=== PATIENT | male | born 1955 ===

== ENCOUNTER 2020-06-11 10:33 | Outpatient (CLI) | payer OTHER | END 2020-06-11 18:00 | disposition home or self-care (01) | LOC: LAB 10:33 | PROVIDERS: ATTEND Internal Medicine Cardiovascular Disease | DX: I10 Essential (primary) hypertension (principal); E11.9 Type 2 diabetes mellitus without complications; E03.8 Other specified hypothyroidism; E78.2 Mixed hyperlipidemia; E55.9 Vitamin D deficiency, unspecified; Z12.11 Encounter for screening for malignant neoplasm of colon; N40.0 Benign prostatic hyperplasia without lower urinary tract symptoms ==

== ENCOUNTER 2020-06-12 14:23 | Outpatient (CLI) | payer OTHER | END 2020-06-12 14:27 | disposition home or self-care (01) | LOC: LAB 14:23 | PROVIDERS: ATTEND Internal Medicine Cardiovascular Disease | DX: I10 Essential (primary) hypertension (principal); E11.9 Type 2 diabetes mellitus without complications; E03.8 Other specified hypothyroidism; E55.9 Vitamin D deficiency, unspecified; Z12.11 Encounter for screening for malignant neoplasm of colon; N40.0 Benign prostatic hyperplasia without lower urinary tract symptoms; E78.2 Mixed hyperlipidemia ==

== ENCOUNTER 2020-07-09 15:05 | Outpatient (CLI) | payer OTHER | END 2020-07-09 15:06 | disposition home or self-care (01) | LOC: NUCLEAR 15:05 | PROVIDERS: ATTEND Internal Medicine Cardiovascular Disease | DX: M81.0 Age-related osteoporosis without current pathological fracture (principal) ==

== ENCOUNTER → 2020-11-16 10:16 | Outpatient (CLI) | payer OTHER | END | disposition home or self-care (01) | LOC: LAB 10:16 | PROVIDERS: ATTEND Internal Medicine Cardiovascular Disease | DX: I10 Essential (primary) hypertension (principal); E11.9 Type 2 diabetes mellitus without complications; E03.8 Other specified hypothyroidism; E78.2 Mixed hyperlipidemia ==

== ENCOUNTER 2020-12-17 10:01 | Outpatient (CLI) | payer OTHER | END 2020-12-17 10:05 | disposition home or self-care (01) | LOC: NUCLEAR 10:01 | PROVIDERS: ATTEND Internal Medicine Cardiovascular Disease | DX: I73.9 Peripheral vascular disease, unspecified (principal) ==

== ENCOUNTER 2020-12-18 09:01 | Outpatient (CLI) | payer OTHER | END 2020-12-18 09:17 | disposition home or self-care (01) | LOC: NUCLEAR 09:01 | PROVIDERS: ATTEND Internal Medicine Cardiovascular Disease | DX: I87.2 Venous insufficiency (chronic) (peripheral) (principal) ==

== ENCOUNTER 2021-03-31 11:05 | Outpatient (CLI) | payer OTHER | END 2021-03-31 11:06 | disposition home or self-care (01) | LOC: LAB 11:05 | PROVIDERS: ATTEND Internal Medicine Cardiovascular Disease | DX: I10 Essential (primary) hypertension (principal); E11.9 Type 2 diabetes mellitus without complications; E03.8 Other specified hypothyroidism; E78.2 Mixed hyperlipidemia ==

== ENCOUNTER 2021-07-28 08:00 | Outpatient (CLI) | payer OTHER | END 2021-07-28 08:30 | disposition home or self-care (01) | LOC: PPH VACUNA 08:00 | PROVIDERS: ATTEND Emergency Medicine Pediatric Emergency Medicine | DX: Z23 Encounter for immunization (principal) ==

== ENCOUNTER 2021-08-26 11:02 | Outpatient (CLI) | payer OTHER | END 2021-08-26 11:15 | disposition home or self-care (01) | LOC: LAB 11:02 | PROVIDERS: ATTEND Internal Medicine Cardiovascular Disease | DX: Z12.11 Encounter for screening for malignant neoplasm of colon (principal); I10 Essential (primary) hypertension; E11.9 Type 2 diabetes mellitus without complications; E03.9 Hypothyroidism, unspecified; E78.2 Mixed hyperlipidemia; N40.0 Benign prostatic hyperplasia without lower urinary tract symptoms; E55.9 Vitamin D deficiency, unspecified ==

== ENCOUNTER 2021-08-30 11:41 | Outpatient (CLI) | payer OTHER | END 2021-08-30 11:42 | disposition home or self-care (01) | LOC: LAB 11:41 | PROVIDERS: ATTEND Internal Medicine Cardiovascular Disease | DX: E03.9 Hypothyroidism, unspecified (principal); I10 Essential (primary) hypertension; E11.9 Type 2 diabetes mellitus without complications; E78.2 Mixed hyperlipidemia; Z12.11 Encounter for screening for malignant neoplasm of colon; N40.0 Benign prostatic hyperplasia without lower urinary tract symptoms; E55.9 Vitamin D deficiency, unspecified ==

== ENCOUNTER → 2021-12-27 12:24 | Outpatient (CLI) | payer OTHER | END | disposition home or self-care (01) | LOC: LAB 12:24 | PROVIDERS: ATTEND Internal Medicine Cardiovascular Disease | DX: I10 Essential (primary) hypertension (principal); E03.9 Hypothyroidism, unspecified; E78.2 Mixed hyperlipidemia; E11.9 Type 2 diabetes mellitus without complications ==

== ENCOUNTER 2022-01-05 09:04 | Outpatient (CLI) | payer OTHER | END 2022-01-05 09:09 | disposition home or self-care (01) | LOC: PPH VACUNA 09:04 | PROVIDERS: ATTEND Emergency Medicine Pediatric Emergency Medicine | DX: Z23 Encounter for immunization (principal) ==

== ENCOUNTER → 2022-05-23 | Outpatient (CLI) | payer OTHER | END | disposition home or self-care (01) | LOC: LAB 14:04 | PROVIDERS: ATTEND Internal Medicine Cardiovascular Disease | DX: I10 Essential (primary) hypertension (principal); E11.9 Type 2 diabetes mellitus without complications; E03.9 Hypothyroidism, unspecified; E78.2 Mixed hyperlipidemia; N40.0 Benign prostatic hyperplasia without lower urinary tract symptoms; Z12.11 Encounter for screening for malignant neoplasm of colon; E55.9 Vitamin D deficiency, unspecified ==

== ENCOUNTER → 2022-06-17 13:33 | Outpatient (CLI) | payer OTHER | END | disposition home or self-care (01) | LOC: LAB 13:33 | PROVIDERS: ATTEND Internal Medicine Cardiovascular Disease | DX: Z12.11 Encounter for screening for malignant neoplasm of colon (principal); I10 Essential (primary) hypertension; E11.9 Type 2 diabetes mellitus without complications; E03.9 Hypothyroidism, unspecified; E78.2 Mixed hyperlipidemia; N40.0 Benign prostatic hyperplasia without lower urinary tract symptoms; E55.9 Vitamin D deficiency, unspecified ==

== ENCOUNTER 2022-11-16 15:00 | Outpatient (CLI) | payer OTHER | END 2022-11-16 15:04 | disposition home or self-care (01) | LOC: LAB 15:00 | PROVIDERS: ATTEND Internal Medicine Cardiovascular Disease | DX: I10 Essential (primary) hypertension (principal); E11.9 Type 2 diabetes mellitus without complications; E03.9 Hypothyroidism, unspecified; E78.2 Mixed hyperlipidemia; K92.0 Hematemesis; Z12.11 Encounter for screening for malignant neoplasm of colon; N40.0 Benign prostatic hyperplasia without lower urinary tract symptoms ==

== ENCOUNTER 2023-03-22 13:57 | Outpatient (CLI) | payer OTHER ==
[2023-03-22 14:35] LABS: PH,URINE 5.5 (5.0-8.0); URINE APPEARANCE Clear; URINE BILIRRUBIN Negative (NEGATIVE); URINE BLOOD Negative; URINE COLOR Yellow; URINE GLUCOSE Negative (NEGATIVE); URINE LEUKOCYTE Negative; URINE NITRATE Negative; URINE PROTEIN Negative (NEGATIVE); URINE UROBILINOGEN 0.2 E.U./dl
[2023-03-22 14:36] LABS: URINE BACTERIA 22.6 uL (0.0-1933); URINE RBC 2.7 uL (0.0-20.8); URINE WBC 2.4 uL (0.0-23.2)
[2023-03-22 14:43] LABS: HEMATOCRIT 37.4 % (39.0-48.0); HEMOGLOBIN 12.8 g/dL (13-16.00); MEAN CELL VOLUME 93.9 fL (80.0-100.00); MEAN CORPUSCULAR HEMOGLOBIN 32.2 pg (27.00-32.0); MEAN CORPUSCULAR HGB CONC 34.3 g/dl (32.0-36.0); PLATELET COUNT 215 K/uL (150-450); RED BLOOD COUNT 3.98 M/uL (4.00-6.00); RED CELL DISTRIBUTION WIDTH 14.3 % (11.5-14.5)
[2023-03-22 14:47] LABS: CALCIUM 9.2 mg/dL (8.5-10.1); CREATININE SERUM 1.1 mg/dL (0.70-1.30); GFR 66.37; POTASSIUM 4.09 mEq/L (3.5-5.1)
[2023-03-22 15:02] LABS: URINE EPITHELIAL CELLS 1.3 uL (0.0-38.8)
[2023-03-22 15:03] LABS: T4 FREE 1.31 NG/ML (0.76-1.46); TSH 0.43 uIU/mL (0.358-3.74)
== END 2023-03-22 14:20 | disposition home or self-care (01) ==
LOC: LAB 13:57
PROVIDERS: ATTEND Internal Medicine Cardiovascular Disease
DX: E11.9 Type 2 diabetes mellitus without complications (principal); E03.9 Hypothyroidism, unspecified; E78.2 Mixed hyperlipidemia; I10 Essential (primary) hypertension

== ENCOUNTER → 2023-11-13 10:39 | Outpatient (CLI) | payer OTHER ==
[2023-11-13 11:08] LABS: HEMOGLOBIN 12.3 g/dL (13-16.00); MEAN CELL VOLUME 91.9 fL (80.0-100.00); MEAN CORPUSCULAR HEMOGLOBIN 32.3 pg (27.00-32.0); MEAN CORPUSCULAR HGB CONC 35.2 g/dl (32.0-36.0); PLATELET COUNT 214 K/uL (150-450); RED BLOOD COUNT 3.81 M/uL (4.00-6.00); RED CELL DISTRIBUTION WIDTH 13.5 % (11.5-14.5)
[2023-11-13 11:11] LABS: PH,URINE 5.5 (5.0-8.0); URINE APPEARANCE Clear; URINE BILIRRUBIN Negative (NEGATIVE); URINE BLOOD Negative; URINE COLOR Yellow; URINE GLUCOSE Negative (NEGATIVE); URINE LEUKOCYTE Negative; URINE NITRATE Negative; URINE PROTEIN Negative (NEGATIVE)
[2023-11-13 11:14] LABS: URINE RBC 4.2 uL (0.0-20.8); URINE WBC 2.4 uL (0.0-23.2)
[2023-11-13 11:44] LABS: URINE EPITHELIAL CELLS 0.9 uL (0.0-38.8)
[2023-11-13 11:45] LABS: CALCIUM 9.1 mg/dL (8.5-10.1); CHOL HDL RATIO 3.2 (0-5.0); CREATININE SERUM 1.02 mg/dL (0.70-1.30); GFR 72.2; POTASSIUM 4.07 mEq/L (3.5-5.1); T4 TOTAL 8.17 UG/DL (4.5-12.1); TSH 0.921 uIU/mL (0.358-3.74)
== END | disposition home or self-care (01) ==
LOC: LAB 10:39
PROVIDERS: ATTEND Internal Medicine Cardiovascular Disease
DX: E78.2 Mixed hyperlipidemia (principal); E03.9 Hypothyroidism, unspecified; E11.9 Type 2 diabetes mellitus without complications; I10 Essential (primary) hypertension

== ENCOUNTER → 2024-02-09 13:07 | Outpatient (CLI) | payer OTHER ==
[2024-02-09 14:01] LABS: PH,URINE 5.5 (5.0-8.0); URINE APPEARANCE Clear; URINE BILIRRUBIN Negative (NEGATIVE); URINE BLOOD Negative; URINE COLOR Yellow; URINE GLUCOSE Negative (NEGATIVE); URINE KETONE Negative (NEGATIVE); URINE LEUKOCYTE Negative; URINE NITRATE Negative; URINE PROTEIN Negative (NEGATIVE); URINE UROBILINOGEN 0.2 E.U./dl
[2024-02-09 14:02] LABS: URINE EPITHELIAL CELLS 1.5 uL (0.0-38.8); URINE RBC 5.6 uL (0.0-20.8); URINE WBC 3.3 uL (0.0-23.2)
[2024-02-09 14:05] LABS: HEMATOCRIT 35.8 % (39.0-48.0); HEMOGLOBIN 12.1 g/dL (13-16.00); MEAN CORPUSCULAR HEMOGLOBIN 31.4 pg (27.00-32.0); MEAN CORPUSCULAR HGB CONC 33.7 g/dl (32.0-36.0); PLATELET COUNT 260 K/uL (150-450); RED BLOOD COUNT 3.85 M/uL (4.00-6.00)
[2024-02-09 15:18] LABS: ALBUMIN 4.1 gm/dL (3.4-5.0); BILIRUBIN TOTAL 0.95 mg/dL (0.3-1.2); CALCIUM 9.3 mg/dL (8.5-10.1); CREATININE SERUM 1.02 mg/dL (0.70-1.30); GFR 72.2; GLOBULINA 3.5 G/DL (2.4-3.5); POTASSIUM 4.02 mEq/L (3.5-5.1); T4 TOTAL 9.56 UG/DL (4.5-12.1); TOTAL PROTEIN 7.6 gm/dL (6.4-8.2)
[2024-02-09 15:32] LABS: TSH 0.209 uIU/mL (0.358-3.74)
== END | disposition home or self-care (01) ==
LOC: LAB 13:07
PROVIDERS: ATTEND Internal Medicine Cardiovascular Disease
DX: E11.9 Type 2 diabetes mellitus without complications (principal); I10 Essential (primary) hypertension; E03.9 Hypothyroidism, unspecified; E78.2 Mixed hyperlipidemia

== ENCOUNTER → 2024-05-10 11:56 | Outpatient (CLI) | payer OTHER ==
[2024-05-10 13:09] LABS: HEMATOCRIT 35.4 % (39.0-48.0); HEMOGLOBIN 11.6 g/dL (13-16.00); MEAN CELL VOLUME 90.3 fL (80.0-100.00); MEAN CORPUSCULAR HEMOGLOBIN 29.6 pg (27.00-32.0); MEAN CORPUSCULAR HGB CONC 32.8 g/dl (32.0-36.0); PLATELET COUNT 236 K/uL (150-450); RED BLOOD COUNT 3.92 M/uL (4.00-6.00); RED CELL DISTRIBUTION WIDTH 14.7 % (11.5-14.5)
[2024-05-10 13:24] LABS: PH,URINE 5.5 (5.0-8.0); URINE APPEARANCE Clear; URINE BILIRRUBIN Negative (NEGATIVE); URINE BLOOD Negative; URINE COLOR Yellow; URINE GLUCOSE Negative (NEGATIVE); URINE KETONE Negative (NEGATIVE); URINE LEUKOCYTE Negative; URINE NITRATE Negative; URINE PROTEIN Negative (NEGATIVE); URINE UROBILINOGEN 0.2 E.U./dl
[2024-05-10 13:27] LABS: URINE BACTERIA 6.1 uL (0.0-1933); URINE EPITHELIAL CELLS 1.7 uL (0.0-38.8); URINE WBC 3.1 uL (0.0-23.2)
[2024-05-10 13:28] LABS: URINE CAST 0.14 uL (0.0-1.40)
[2024-05-10 14:26] LABS: BILIRUBIN TOTAL 0.87 mg/dL (0.3-1.2); CALCIUM 9.4 mg/dL (8.5-10.1); CHOL HDL RATIO 2.8 (0-5.0); CREATININE SERUM 1.03 mg/dL (0.70-1.30); GFR 71.39; GLOBULINA 3.3 G/DL (2.4-3.5); POTASSIUM 3.97 mEq/L (3.5-5.1); PROSTATIC SPECIFIC ANTIGEN 1.82 NG/ML (0.010-4.00); T4 TOTAL 10.1 UG/DL (4.5-12.1); TOTAL PROTEIN 7.3 gm/dL (6.4-8.2); TSH 0.454 uIU/mL (0.358-3.74)
[2024-05-10 14:39] LABS: T3 TOTAL 0.941 ng/ml (0.846-2.02); VITAMIN D3 25 HYDROXY 79.13 ng/ml (30-120)
== END | disposition home or self-care (01) ==
LOC: LAB 11:56
PROVIDERS: ATTEND Internal Medicine Cardiovascular Disease
DX: I10 Essential (primary) hypertension (principal); E11.9 Type 2 diabetes mellitus without complications; E03.9 Hypothyroidism, unspecified; E78.2 Mixed hyperlipidemia; D64.0 Hereditary sideroblastic anemia; Z12.11 Encounter for screening for malignant neoplasm of colon; N40.0 Benign prostatic hyperplasia without lower urinary tract symptoms; E55.9 Vitamin D deficiency, unspecified; M81.0 Age-related osteoporosis without current pathological fracture

== ENCOUNTER 2024-08-13 11:41 | Outpatient (CLI) | payer OTHER ==
[2024-08-13 12:30] LABS: PH,URINE 5.5 (5.0-8.0); URINE APPEARANCE Clear; URINE BILIRRUBIN Negative (NEGATIVE); URINE BLOOD Negative; URINE COLOR Yellow; URINE GLUCOSE Negative (NEGATIVE); URINE KETONE Negative (NEGATIVE); URINE LEUKOCYTE Negative; URINE NITRATE Negative; URINE PROTEIN Negative (NEGATIVE)
[2024-08-13 12:31] LABS: URINE EPITHELIAL CELLS 1.7 uL (0.0-38.8); URINE RBC 3.6 uL (0.0-20.8)
[2024-08-13 12:39] LABS: HEMOGLOBIN 11.8 g/dL (13-16.00); MEAN CELL VOLUME 89.1 fL (80.0-100.00); MEAN CORPUSCULAR HEMOGLOBIN 29.9 pg (27.00-32.0); MEAN CORPUSCULAR HGB CONC 33.5 g/dl (32.0-36.0); PLATELET COUNT 235 K/uL (150-450); RED BLOOD COUNT 3.93 M/uL (4.00-6.00); RED CELL DISTRIBUTION WIDTH 15.5 % (11.5-14.5)
[2024-08-13 13:28] LABS: CALCIUM 9.2 mg/dL (8.5-10.1); CREATININE SERUM 1.05 mg/dL (0.70-1.30); GFR 69.63; POTASSIUM 4.15 mEq/L (3.5-5.1); T4 TOTAL 8.6 UG/DL (4.5-12.1); TSH 1.01 uIU/mL (0.358-3.74)
== END 2024-08-13 11:44 | disposition home or self-care (01) ==
LOC: LAB 11:41
PROVIDERS: ATTEND Internal Medicine Cardiovascular Disease
DX: E11.9 Type 2 diabetes mellitus without complications (principal); I10 Essential (primary) hypertension; E03.9 Hypothyroidism, unspecified; E78.2 Mixed hyperlipidemia; D64.0 Hereditary sideroblastic anemia; Z12.11 Encounter for screening for malignant neoplasm of colon

== ENCOUNTER 2024-11-09 13:59 | Outpatient (CLI) | payer OTHER ==
[2024-11-09 14:37] LABS: URINE APPEARANCE Clear; URINE BILIRRUBIN Negative (NEGATIVE); URINE BLOOD Negative; URINE COLOR Yellow; URINE GLUCOSE Negative (NEGATIVE); URINE KETONE Trace (NEGATIVE); URINE LEUKOCYTE Negative; URINE NITRATE Negative; URINE PROTEIN Negative (NEGATIVE); URINE UROBILINOGEN 1.0 E.U./dl
[2024-11-09 14:40] LABS: URINE RBC 3.3 uL (0.0-20.8); URINE WBC 3.2 uL (0.0-23.2)
[2024-11-09 14:41] LABS: URINE BACTERIA 3.5 uL (0.0-1933); URINE CAST 0.00 uL (0.0-1.40); URINE EPITHELIAL CELLS 1.3 uL (0.0-38.8)
[2024-11-09 14:57] LABS: BASO % 0.5 % (0.1-1.2); EOS # 0.12 (0.04-0.54); EOS % 1.9 % (0.7-7.0); LYMPH # 2.45 (1.18-3.74); LYMPH % 38.2 % (19.3-53.1); MEAN PLATELET VOLUME 10.00 fl (9.4-12.4); MONO # 0.44 (0.24-0.82); MONO % 6.9 % (4.7-12.5); NEUT # 3.34 (1.56-6.13); NEUT % 52.0 % (34.0-71.1); RED CELL DISTRIBUTION WIDTH 13.9 % (11.6-14.4)
[2024-11-09 15:59] LABS: BUN CREA RATIO 12.0 (7.0-25.0); CHOL HDL RATIO 3.1 (0-5.0); CREATININE SERUM 0.92 mg/dL (0.70-1.30); GFR 81.1; GLUCOSE FASTING 94.0 mg/dL (65-100); HDL 53.0 mg/dl (40-60); LDL 83.0 mg/dl (0-130); OSMOLALITY SERUM 282.0 MOSM/KG (275-295); T4 TOTAL 8.67 UG/DL (4.5-12.1); VLDL 29.0 (0-39)
[2024-11-09 16:13] LABS: TSH 0.157 uIU/mL (0.358-3.74)
== END 2024-11-09 14:05 | disposition home or self-care (01) ==
LOC: LAB 13:59
PROVIDERS: ATTEND Internal Medicine Cardiovascular Disease
DX: I10 Essential (primary) hypertension (principal); E03.9 Hypothyroidism, unspecified; E78.2 Mixed hyperlipidemia

== ENCOUNTER 2025-02-07 12:59 | Outpatient (CLI) | payer OTHER ==
[2025-02-07 13:50] LABS: URINE APPEARANCE Clear; URINE BILIRRUBIN Negative (NEGATIVE); URINE BLOOD Negative; URINE COLOR Yellow; URINE GLUCOSE Negative (NEGATIVE); URINE KETONE Negative (NEGATIVE); URINE LEUKOCYTE Trace; URINE NITRATE Negative; URINE PROTEIN Negative (NEGATIVE); URINE UROBILINOGEN 1.0 E.U./dl
[2025-02-07 13:54] LABS: URINE EPITHELIAL CELLS 1.9 uL (0.0-38.8); URINE RBC 5.2 uL (0.0-20.8); URINE WBC 2.7 uL (0.0-23.2)
[2025-02-07 13:55] LABS: BASO % 0.3 % (0.1-1.2); EOS # 0.21 (0.04-0.54); EOS % 2.3 % (0.7-7.0); LYMPH # 2.02 (1.18-3.74); LYMPH % 22.5 % (19.3-53.1); MEAN PLATELET VOLUME 9.80 fl (9.4-12.4); MONO # 0.49 (0.24-0.82); MONO % 5.5 % (4.7-12.5); NEUT # 6.17 (1.56-6.13); NEUT % 69.0 % (34.0-71.1); RED CELL DISTRIBUTION WIDTH 13.9 % (11.6-14.4)
[2025-02-07 13:59] LABS: URINE BACTERIA 2.4 uL (0.0-1933); URINE CAST 0.14 uL (0.0-1.40)
[2025-02-07 15:01] LABS: BUN CREA RATIO 14.0 (7.0-25.0); CHOL HDL RATIO 3.1 (0-5.0); CREATININE SERUM 1.15 mg/dL (0.70-1.30); GFR 62.69; GLUCOSE FASTING 101.0 mg/dL (65-100); HDL 58.0 mg/dl (40-60); LDL 107.0 mg/dl (0-130); OSMOLALITY SERUM 286.0 MOSM/KG (275-295); T4 TOTAL 7.18 UG/DL (4.5-12.1); VLDL 14.0 (0-39)
[2025-02-07 15:02] LABS: TSH 0.296 uIU/mL (0.358-3.74)
== END 2025-02-07 13:00 | disposition home or self-care (01) ==
LOC: LAB 12:59
PROVIDERS: ATTEND Internal Medicine Cardiovascular Disease
DX: E03.9 Hypothyroidism, unspecified (principal); I10 Essential (primary) hypertension; E78.2 Mixed hyperlipidemia; R73.03 Prediabetes